=== PATIENT | male | born 1985 | race Caucasian/White ===

== ENCOUNTER 2016-08-24 01:37 | Emergency (ER) | payer OTHER ==
[~2016-08-24] VITALS: Ht 193 cm; Wt 93.0 kg
[~2016-08-24 01:37] MED LIST: NOHOMEMEDICATIONS
[2016-08-24] MEDS ORDERED: IBUPROFEN 600600 M1 PO (03:13)
[2016-08-24] MEDS ORDERED: PERCOCET 5-3251 EACH PO (03:13)
[2016-08-24] MEDS ORDERED: NORFLEX100 MG PO (03:13)
[2016-08-24 03:21] VITALS: BP 113/71
== END 2016-08-24 03:22 | disposition home or self-care (01) ==
LOC: ER 01:37
DX: M47.896 Other spondylosis, lumbar region (principal); M47.894 Other spondylosis, thoracic region; J45.909 Unspecified asthma, uncomplicated; F17.210 Nicotine dependence, cigarettes, uncomplicated